=== PATIENT | male | born 1960 | race Caucasian/White ===

== ENCOUNTER 2017-08-31 23:08 | Emergency (ER) | payer OTHER, SELFPAY ==
[2017-08-31 23:13] VITALS: BP 131/72; PULSE 81; RESP 20; TEMP 36.4; O2SAT 96; BMI 28.7
[2017-09-01] MEDS: DEXAMETHASONE 4 MG TABLET 12 MG PO (00:49)
[2017-09-01 01:03] LABS: Add Manual Diff / Slide Review NO; Basophils Percent Auto 1.3 % (0-2); Eosinophils Percent Auto 1.2 % (2-4); Hematocrit 44.6 % (41-53); Hemoglobin 15.7 g/dL (13.5-17.5); Lymphocytes Percent Auto 26.4 % (25-40); Mean Corpuscular HGB Conc 35.1 % (30-36); Mean Corpuscular Hemoglobin 28.9 PG (26-34); Mean Corpuscular Volume 82.5 fL (80-100); Monocytes Percent Auto 11.3 % (3-14); Neutrophils Absolute Auto 6600 /uL (3000-5900); Neutrophils Percent Auto 59.8 % (50-75); Platelet Count 180 X10^3/uL (150-400); Red Blood Cell Count 5.41 X10^6/uL (4.5-5.9); Red Cell Distribution Width 14.2 % (11.6-14.8)
[2017-09-01 01:12] LABS: Calcium 9.6 mg/dL (8.4-10.2); Estimated Glomerular Filt Rate > 60.0 mL/min (>60); Glucose 92 mg/dL (70-100); HEMOLYSIS < 15 (0-50); Potassium 3.8 mmol/L (3.4-5.1); Sodium 142 mmol/L (137-145)
--- NOTE | 2017-09-01 02:10 | ED_ITS ---
HPI - Skin/Abscess/Foreign Bdy General Chief complaint: Skin/Abscess/Foreign Body Stated complaint: swollen lower right lip Time Seen by Provider: 09/01/17 00:19 History of Present Illness HPI narrative: HPI 57-year-old male presents for evaluation of painless recurrent left lower anterior lip swelling. Patient reports he is had approximately one hour of lip swelling that occurred spontaneously. Patient is not eating. Patient get ready to go to bed. Patient reports he had an episode naproxen one month ago that woke him from his sleep. Patient is minor discomfort at that area secondary to distention of the skin. Patient denies itching. Patient denies rash, hives, GI upset, shortness breath, or difficulty breathing. Patient notes he took ibuprofen before onset of today's symptoms, however last time he did not. Patient does note though that he is been taking statins, statin use appears to precede the onset of symptoms. * Medications: Denies GENEVA-inhibitors, ARBs use. * Hx: Denies a family history of angioedema or facial swelling. * Trauma: Patient denies known recent facial trauma. * Allergies: Denies a history of anaphylaxis. M/S/F/SocHx notable for: please see HPI; remainder reviewed with patient and in chart. ROS: Negative constitutional, eye, cardiovascular, pulmonary, GI, , MSK, skin , neurologic, psychiatric, endocrine unless noted in the HPI. Exam Gen: Pleasant, non-toxic appearing, resting comfortably. HEENT: left lower lip with diffuse dampness nontender swelling of normal temperature. Buccal mucosa visually normal without discernible traumatic abnormalities. Oropharynx otherwise visually normal. normocephalic, atraumatic, EOMI, PERRL. Resp: normal work of breathing. Card: extremities warm and well perfused. GI: nondistended. : Deferred MSK: No visible deformities, strength and tone without visually appreciable deficit. Skin: Normal color with no visible lesions. Neuro: AO x 3, no facial asymmetry, vision and hearing WNL. Psych: Mood and affect appropriate. Labs: WBC 1.0, him going 15.7, sodium 142, potassium 3.8, C1 esterase inhibitor pending, C4 pending. MDM Previous chart, nursing note, labs, imaging, and vitals reviewed. A: 57-year-old male presents for evaluation of painless recurrent left lower anterior lip swelling. DDx & Evaluation: given the recurrent nature as well as visual presentation the patient swelling is most strongly suggestive of angioedema. No clear evidence of prior allergen leading to an IGE mediated reaction. Patient is without a clearly identifiable triggering event (ibuprofen was used prior to today's event , however that did not precede his prior episode of lip swelling). Patient takes no antihypertensives, has no family history of hereditary angioedema, no preceding trauma. Furthermore, there is no focal swelling consistent with mucocele or other local minor salivary gland blockage, in the swelling as well away from the patient's sublingual and submandibular glands. To aid in further evaluation with respect to possible acquired angioedema C1 esterase inhibitor level and C4 levels were ordered and the patient will follow up with PCP to review these studies. The patient was given 12 mg dexamethasone and observed for 3 hours without progression of symptoms. Discharge with return to care as needed. Impression: Angioedema. (please reference below for remainder of encounter information) Related Data Home Medications Medication Instructions Recorded Confirmed [TORVASTATIN] #0 07/25/17 Allergies Allergy/AdvReac Type Severity Reaction Status Date / Time spider venom [SPIDER VENOM] Allergy Unknown Verified 08/31/17 23:15 WASP Allergy Unknown Uncoded 07/25/17 03:58 [facility] Social History Smoking Status: Never smoker Exam Initial Vital Signs Initial Vital Signs: Vital Signs Temperature 97.6 F 08/31/17 23:13 Pulse Rate 81 08/31/17 23:13 Respiratory Rate 20 08/31/17 23:13 Blood Pressure 131/72 H 08/31/17 23:13 Pulse Oximetry 96 08/31/17 23:13 Course Orders Ordered: ED Orders 09/01/17 00:56 Basic Metabolic Panel Stat C1 Esterase Inhibitor Stat Complement C4 Stat Complete Blood Count AUTO DIFF Stat Discontinued Medications Dexamethasone (Decadron) 12 mg PO NOW ONE Stop: 09/01/17 00:40 Last Admin: 09/01/17 00:49 Dose: 12 mg Vital Signs - 8 hr 08/31/17 23:13 Temperature 97.6 F Pulse Rate 81 Respiratory Rate 20 Blood Pressure 131/72 H Pulse Oximetry 96 MDM - Skin/Abscess/Foreign Bdy Lab Data Result diagrams: 09/01/17 00:56 09/01/17 00:56 Lab Results 09/01/17 09/01/17 Range/Units 00:56 00:56 WBC 11.0 (4.5-11.0) X10^3/uL RBC 5.41 (4.5-5.9) X10^6/uL Hgb 15.7 (13.5-17.5) g/dL Hct 44.6 (41-53) % MCV 82.5 (80-100) fL MCH 28.9 (26-34) PG MCHC 35.1 (30-36) % RDW 14.2 (11.6-14.8) % Plt Count 180 (150-400) X10^3/uL Neut % (Auto) 59.8 (50-75) % Lymph % (Auto) 26.4 (25-40) % [place] % (Auto) 11.3 (3-14) % Eos % (Auto) 1.2 L (2-4) % Baso % (Auto) 1.3 (0-2) % Neut # (Auto) 6600 H (0735-1737) /uL Sodium 142 (137-145) mmol/L Potassium 3.8 (3.4-5.1) mmol/L Chloride 106.0 (98-107) mmol/L Carbon Dioxide 25.0 (22-32) mmol/L BUN 16.0 (9-20) mg/dL Creatinine 1.00 (0.66-1.25) mg/dL Estimated GFR > 60.0 (>60) mL/min BUN/Creatinine Ratio 16.0 (6-22) Glucose 92 (70-100) mg/dL Calcium 9.6 (8.4-10.2) mg/dL Discharge Plan Departure Prescriptions: No Action [TORVASTATIN] Qty: 0 RF: 0
[2017-09-03 14:50] LABS: C1 Esterase Inhibitor 28 mg/dL (21-39)
== END 2017-09-01 02:32 | disposition home or self-care (01) ==
PROVIDERS: Emergency Provider Emergency Medicine; PCP Family Medicine
DX: T78.3XXA Angioneurotic edema, initial encounter (principal)
CPT/HCPCS: 36415; 80048; 85025; 86160; 99282; 99283

== ENCOUNTER → 2020-04-27 10:08 | Outpatient (CLI) | payer OTHER, SELFPAY ==
[2020-04-27 10:58] LABS: COVID19 -Nasal RAPID Negative (Negative)
== END ==
PROVIDERS: PCP Family Medicine; Visit Provider Surgery
DX: Z01.812 Encounter for preprocedural laboratory examination (principal); Z20.822 Contact with and (suspected) exposure to COVID-19
CPT/HCPCS: 87635; C9803

== ENCOUNTER 2020-04-28 08:53 | Day surgery (SDC) | payer OTHER, SELFPAY ==
[2020-04-27 11:46] VITALS: BP 110/73; PULSE 65; RESP 12; O2SAT 96
[2020-04-27 12:01] VITALS: BP 112/80; PULSE 67; RESP 15; O2SAT 96
[2020-04-28] VITALS (7 sets, daily range): BP systolic 108–129; BP diastolic 69–81; PULSE 64–73; RESP 1–19; TEMP 36.1; O2SAT 95–98; BMI 28.7
--- NOTE | 2020-04-28 | PATH_ITS ---
[facility] Accession Number: [id number] . 01 Material submitted: . PART A: duodenum - DUODENUM PART B: gastrointestinal site - STOMACH PART C: esophagus - DISTAL ESOPHAGUS . 01 Diagnosis: A. Duodenum, Biopsy: Duodenal mucosa with no diagnostic abnormality. Negative for active inflammation, features of sprue, dysplasia, or malignancy. . B. Stomach, Biopsies: Gastric antral mucosa with minimal chronic inflammation and focal intestinal metaplasia. Intestinal metaplasia present in one of three biopsy fragments. Negative for Helicobacter organisms by immunohistochemistry. Negative for dysplasia or malignancy. . C. Distal Esophagus, Biopsies: Squamocolumnar junctional mucosa with mild chronic inflammation. Negative for specialized intestinal metaplasia on AB/PAS stain. Negative for dysplasia or malignancy. MR 05/05/2020 1259 Local . 01 Electronically signed: . Neri Weinstein MD, PhD, Pathologist NPI- [id number] . 01 Gross description: . Part A: DUODENUM: Received in formalin are 2 fragment(s) of puente, soft tissue measuring 0.1 x 0.1 x 0.1 cm to 0.3 x 0.2 x 0.2 cm submitted entirely in 1 cassette(s) Part B: STOMACH: Received in formalin are 3 fragment(s) of puente, soft tissue measuring 0.1 x 0.1 x 0.1 cm to 0.3 x 0.3 x 0.2 cm submitted entirely in 1 cassette(s) Part C: DISTAL ESOPHAGUS: Received in formalin are 2 fragment(s) of puente, soft tissue measuring 0.2 x 0.2 x 0.2 cm to 0.3 x 0.2 x 0.2 cm submitted entirely in 1 cassette(s) /CASEY 05/01/2020 1912 Local . 01 Microscopic: . B. An immunohistochemical stain was performed to evaluate for Helicobacter organisms and is negative. The control stain showed appropriate reactivity. . C. An AB/PAS stain is performed to evaluate for specialized intestinal metaplasia, and is negative for goblet cells. A control stain shows appropriate reactivity. . . . * This test was developed and its performance characteristics determined by [employer]. It has not been cleared or approved by the U.S. Food and Drug Administration. The FDA has determined that such clearance or approval is not necessary. This test is used for clinical purposes. It should not be regarded as investigational or for research. . 01 Pathologist provided ICD-10: K31.9, K20.90 . 01 CPT . 098630, 443774, 291867, L80575, 497824 Performed at: 01 [facility] [address] [place] [address] [address] [facility], [place], [place] [id number] MD Liban Alas MD Phone: [phone]
[2020-04-28] MEDS: SODIUM CHLORIDE 0.9% 1,000 ML 200 ML IV (09:22)
--- NOTE | 2020-04-28 11:10 | PM.PREOP ---
Pre-operative Note COVID-19 COVID-19 status: Negative Result date/Date tested (Pos, Neg/Pending): 04/27/20 Interval Note History & Physical reviewed/Exam performed by Physician: Yes Changes to H&P: No ASA Class (for procedural sedation): II
--- NOTE | 2020-04-28 11:10 | PM.OP.ENDO ---
Operative Date/Time/Diagnoses Date of procedure: 04/28/20 Time of procedure: 11:10 Pre-op diagnosis: Heartburn symptoms Post-op diagnosis: other (Dhillon's esophagus, endoscopic gastritis, endoscopic duodenitis) Procedure & Clinicians Study performed: EGD Procedural sedation performed by the endoscopy Standard forceps biopsies of duodenum, stomach, distal esophagus Same procedure as scheduled: Yes Indications: Heartburn, reflux symptoms Surgeon: Tiffany Solares Procedure Notes SCOAP/Timeout: Performed Procedure in detail: The patient was brought to the room and placed in left lateral decubitus position with all bony prominences padded. A bite block was positioned in the patient's mouth to protect the lips, teeth, and tongue for the procedure. A time-out was performed and then the patient was given procedural sedation starting with 4 mg of Versed and 100 mcg of fentanyl. A total of 6 mg of Versed and 100 micro g of fentanyl were given for the entire procedure. Vitals were monitored throughout the procedure and remained stable. Once adequately sedated, the procedure was begun. The lubricated gastroscope was passed through the bite block and across the tongue and into the esophagus without incident. A tubular view of the esophagus was maintained as the scope was advanced through the esophagus and into the stomach. The scope was advanced through the stomach and to the pylorus. The scope was gently popped through the pylorus and into the duodenal bulb. The scope was flexed and advanced into the second and third portions of the duodenum. The duodenum and duodenal bulb revealed some evidence of mild inflammation. The scope was withdrawn into the stomach. The stomach revealed some evidence of mild inflammation. The scope was retroflexed and the gastric cardia was examined. The hiatus appeared normal, with no gaping of the GE junction around the scope. The scope was then straightened, and withdrawn into the esophagus. There was a broken Z-line at 40 cm with a 2 cm tongue of salmon-colored mucosa coming up into the distal esophagus. The remainder of the esophagus appeared normal. Incidental note of a gastric inlet patch in the upper esophagus. Biopsies were taken of the duodenum, stomach, distal esophagus. The scope was then withdrawn through the esophagus with a tubular view. The scope was then withdrawn from the patient the procedure was concluded. The patient tolerated the procedure well and was transferred to the PACU in stable condition. Sedation minutes: 11 Findings: Dhillon's esophagus (2 cm tongue of salmon-colored mucosa coming up into the esophagus, consistent with short segment Dhillon's esophagus) and gastritis (Endoscopic gastritis and duodenitis, without any exposed vessels or significant ulcers) Specimen(s): other (biopsy of stomach, duodenum, and distal esophagus) Complications: none Impression: Endoscopy findings consistent with short-segment Dhillon's esophagus, low-grade gastritis, and duodenitis Post-procedure Recommendations: Other recommendation (Recommendations for future endoscopic surveillance, and workup for anti-reflux surgery will depend on biopsy results, we will contact the patient when the pathology results return) Follow up: as needed Disposition: PACU
[2020-04-28] MEDS: LIDOCAINE 4% SOLN 50 ML 20 ML TOP (11:14)
[2020-04-28] MEDS: MIDAZOLAM 5 MG/5 ML VIAL IV (11:17)
[2020-04-28] MEDS: fentaNYL 250 MCG/5 ML INJ IV (11:17)
--- NOTE | 2020-04-28 12:00 | SUR.PHASEI ---
Report from Mariah IVEY
== END 2020-04-28 12:24 | disposition home or self-care (01) ==
PROVIDERS: PCP Family Medicine; Referring Provider Surgery; Visit Provider Surgery
PROC: 0DJ08ZZ Inspection of Upper Intestinal Tract, Via Natural or Artificial Opening Endoscopic (ICD-10-PCS; CPT 43235; principal; 2020-04-28 10:00)
DX: K20.90 Esophagitis, unspecified without bleeding (principal); K29.80 Duodenitis without bleeding; K29.50 Unspecified chronic gastritis without bleeding
CPT/HCPCS: 43239; 99152; J2250; J3010

== ENCOUNTER → 2020-08-23 11:52 | Outpatient (CLI) | payer OTHER, SELFPAY | PROVIDERS: PCP Family Medicine; Visit Provider Physician Assistant | DX: T14.8XXA Other injury of unspecified body region, initial encounter (principal) | CPT/HCPCS: 87070; 87077; 87147; 87186; 87205 ==

== ENCOUNTER → 2021-03-15 07:07 | Outpatient (CLI) | payer OTHER, SELFPAY ==
[2021-03-15 08:23] LABS: Hemoglobin A1C% w Est Avg Glu 5.2 % (4.0-6.0)
[2021-03-15 08:29] LABS: Cholesterol 134 mg/dL (140-199); HDL Cholesterol 34 mg/dL (40-60); LDL Cholesterol Calculated 76 mg/dL (<100); Triglycerides 121 mg/dL (35-150)
[2021-03-15 08:58] LABS: Prostate Specific Antigen 0.601 ng/mL (0.10-4.00)
== END ==
PROVIDERS: PCP Family Medicine; Referring Provider Family Medicine; Visit Provider Family Medicine
DX: Z13.1 Encounter for screening for diabetes mellitus (principal); E78.00 Pure hypercholesterolemia, unspecified; Z12.5 Encounter for screening for malignant neoplasm of prostate
CPT/HCPCS: 36415; 80061; 83036; 84153

== ENCOUNTER → 2021-05-28 09:37 | Outpatient (CLI) | payer OTHER, SELFPAY ==
[2021-05-28 10:39] LABS: COVID19 -Nasal RAPID Negative (Negative)
== END ==
PROVIDERS: PCP Family Medicine; Visit Provider Surgery
DX: Z01.812 Encounter for preprocedural laboratory examination (principal); Z20.822 Contact with and (suspected) exposure to COVID-19
CPT/HCPCS: 87635; C9803

== ENCOUNTER 2021-05-29 08:07 | Day surgery (SDC) | payer OTHER, SELFPAY ==
--- NOTE | 2021-05-29 | PATH_ITS ---
[facility] Accession Number: [id number] . 01 Material submitted: . PART A: esophagus, E-G Junction - BIOPSY GE JUNCTION PART B: gastrointestinal site - GASTRIC BIOPSY . 02 Diagnosis: A. Biopsy Gastroesophageal Junction: Squamocolumnar junctional mucosa with no diagnostic abnormality. Negative for intestinal metaplasia. Negative for dysplasia and malignancy. . B. Gastric Biopsy: Portion of gastric body-type mucosa with mild chronic inflammation. Negative for Helicobacter organisms by immunohistochemistry. Negative for intestinal metaplasia. Negative for dysplasia or malignancy. MRV 06/01/2021 1436 Local . 02 Electronically signed: . Crystal Bo MD, Pathologist NPI- [id number] . 01 Gross description: . Part A: BIOPSY GE JUNCTION: Received in formalin is 1 fragment(s) of puente, soft tissue measuring 0.3 x 0.1 x 0.1 cm submitted entirely in 1 cassette(s) Part B: GASTRIC BIOPSY: Received in formalin is 1 fragment(s) of puente, soft tissue measuring 0.4 x 0.1 x 0.1 cm submitted entirely in 1 cassette(s) /CPE 05/30/2021 1313 Local . 02 Microscopic: . B. An immunohistochemical stain was performed to evaluate for Helicobacter organisms and is negative. The control stain showed appropriate reactivity. . * This test was developed and its performance characteristics determined by [employer] It has not been cleared or approved by the U.S. Food and Drug Administration. The FDA has determined that such clearance or approval is not necessary. This test is used for clinical purposes. It should not be regarded as investigational or for research. . 02 Pathologist provided ICD-10: K29.70 . 02 CPT . 253565, 791724, D71889 Specimen Comment: A courtesy copy of this report has been sent to [phone] Performed at: 01 [facility] [address] [place] [address], [place], [place] [id number] MD Liban Alas MD Phone: [phone] Performed at: 02 [facility] [address] [place], [place] [id number] MD Yadira Mays MD Phone: [phone]
[2021-05-29 08:25] VITALS: BMI 27.6
[2021-05-29 08:33] VITALS: BP 116/75; PULSE 60; RESP 16; TEMP 36.6; O2SAT 97
[2021-05-29] MEDS: LACTATED RINGERS 1,000 ML 200 ML IV (08:39)
--- NOTE | 2021-05-29 09:08 | PM.HP.1 ---
History of Present Illness History of Present Illness Date Patient Seen: 05/29/21 Time Patient Seen: 09:08 Chief complaint: EGD Narrative: 61-year-old man history of chronic reflux here for EGD. He had previous esophagoduodenoscopy 1 year ago the demonstrated mild inflammation of the esophagus and stomach there was no evidence of Dhillon's esophagus. He is continued on 20 mg of omeprazole daily with relatively good control of his symptoms. He is here for interval surveillance. No nausea hematemesis unintentional weight loss dysphagia. Patient History Medical History (Updated 03/07/21 @ 14:02 by Gustavo Vitale MD) Closed displaced fracture of pelvis (~03/20/16) Closed displaced fracture of surgical neck of right humerus (~03/30/16) Closed minimally displaced zone I fracture of sacrum with routine healing Cough Encounter for general adult medical examination with abnormal findings Hemorrhoid Herpes zoster without complication History of fracture of humerus Hyperlipidemia Screening for diabetes mellitus Screening for HIV (human immunodeficiency virus) Screening for prostate cancer Surgical History (Updated 03/04/21 @ 19:18 by Margie Matias) Anesthesia History of arthroscopic knee surgery (~04/2019) History of arthroscopic knee surgery (~05/1994) History of colonoscopy History of endoscopy (~04/2020) Hx of right knee surgery (~02/2017) Family & Social History Family History (Updated 03/04/21 @ 19:21 by Margie Matias) Father Hypertension Heart disease Prostate cancer Hyperlipidemia Mother Hypertension Grandfather Diabetes mellitus Grandmother Dementia Grandfather Heat stroke Grandmother Congestive heart failure Social History: household members spouse Tobacco & Substance use: Smoking Status Never smoker alcohol intake current alcohol intake frequency a few times a month Substance Use Type does not use Meds Home Medications and Allergies Home Medications Medication Instructions Recorded Confirmed Type multivitamin 1 cap PO DAILY 10/26/18 05/29/21 History salmon oil-omega-3 fatty acids 1 cap PO DAILY cap 10/26/18 05/29/21 History 1,000 mg-200 mg capsule ([place] Oil-1000) cholecalciferol (vitamin D3) 50 50 mcg PO DAILY 04/20/20 05/29/21 History mcg (2,000 unit) capsule coenzyme Q10 30 mg capsule (CoQ-10) 30 mg PO DAILY 02/06/21 05/29/21 History epinephrine 0.3 mg/0.3 mL 0.3 mg (0.3 mL) IM ONCE #1 ea 02/06/21 05/29/21 Rx injection, auto-injector (Auvi-Q) omeprazole 40 mg capsule,delayed 40 mg PO DAILY #90 cap 02/06/21 05/29/21 Rx release valacyclovir 1 gram tablet 1,000 mg PO TID 02/06/21 02/06/21 History simvastatin 20 mg tablet See Rx Instructions .ROUTE 05/07/21 05/29/21 Rx .COMPLEX #90 tab Allergies Allergy/AdvReac Type Severity Reaction Status Date / Time spider venom [SPIDER VENOM] Allergy Unknown Verified 05/29/21 08:19 WASP Allergy Unknown Uncoded 02/06/21 15:42 Exam Vital Signs (past 8 hours): - 05/29/21 08:33 Temperature 97.8 F Pulse Rate 60 Respiratory Rate 16 Blood Pressure 116/75 Pulse Oximetry 97 Oxygen Delivery Method Room Air Narrative Exam Narrative: GENERAL: Adult male in no apparent distress HEENT: No scleral icterus CV: Regular rate, no peripheral edema LUNGS: No increased work of breathing. Patient speaks in full sentences without oxygen support. ABDOMEN: Soft, non-tender, non-distended NEURO: Nonfocal, normal strength throughout, Assessment & Plan Assessment and plan (1) Gastroesophageal reflux disease with esophagitis without hemorrhage: Status: Acute Assessment & Plan narrative: 61-year-old man with gastroesophageal reflux history of esophagitis and gastritis here for surveillance EGD. Technical details of the procedure were discussed with patient. Procedural risks including bleeding, missed diagnosis, intestinal perforation were discussed. His questions been answered he is in agreement with this plan. Time Spent With Patient Critical Care time: I spent a total of [] minutes of critical care time on this patient's care today; this time is exclusive of procedural time.
--- NOTE | 2021-05-29 09:26 | PM.OP.EGD ---
Operative Date/Time/Diagnoses Date of procedure: 05/29/21 Time of procedure: 09:26 Pre-op diagnosis: Gastritis, esophagitis Post-op diagnosis: same Procedure & Clinicians Study performed: Esophagoduodenoscopy Same procedure as scheduled: Yes Indications: History of gastritis and esophagitis Surgeon: Taj Blackmon Procedure Notes Procedure in detail: Patient placed in left lateral decubitus position. Time out was performed. Procedural sedation was administered with Versed and Fentanyl. A bite block was placed. the scope was inserted into the mouth and advanced through the esophagus and into the stomach. The pylorus was intubated and the duodenum was normal to the 2nd portion. There was no significant hiatal hernia. The stomach was notable for mild nonbleeding gastritis of the body and cardia. Biopsy was taken with forceps. The scope was withdrawn into the esophagus the Z line was seen at 40 cm from the incisions. There was mild inflammation of the distal esophagus at the GE junction biopsies of the junction were taken with forceps. Stomach was desufflated and scope removed. Patient tolerated procedure well. Findings: gastritis and other findings (Esophagitis) Specimen(s): other (Gastric, GE junction) Complications: none Impression: Mild gastritis and esophagitis Post-procedure Plan for aftercare: Continue omeprazole 20 mg daily. Will follow up with biopsy results. Disposition: same day surgery
[2021-05-29] MEDS: LIDOCAINE 4% SOLN 50 ML 20 ML TOP (09:28)
[2021-05-29] MEDS: fentaNYL 250 MCG/5 ML INJ IV (09:29)
[2021-05-29] MEDS: MIDAZOLAM 5 MG/5 ML VIAL IV (09:29)
[2021-05-29 09:30] VITALS: BP 110/75; PULSE 63; RESP 11; TEMP 36.2; O2SAT 97
[2021-05-29 09:35] VITALS: BP 121/72; PULSE 56; RESP 13; O2SAT 95
[2021-05-29 09:40] VITALS: BP 110/78; PULSE 61; RESP 16; O2SAT 95
[2021-05-29 09:48] VITALS: BP 113/68; PULSE 70; RESP 13; TEMP 36.1; O2SAT 96
== END 2021-05-29 09:59 | disposition home or self-care (01) ==
PROVIDERS: PCP Family Medicine; Referring Provider Surgery; Visit Provider Surgery
PROC: 0DJ08ZZ Inspection of Upper Intestinal Tract, Via Natural or Artificial Opening Endoscopic (ICD-10-PCS; CPT 43235; principal; 2021-05-29 09:15)
DX: K29.50 Unspecified chronic gastritis without bleeding (principal); K21.00 Gastro-esophageal reflux disease with esophagitis, without bleeding
CPT/HCPCS: 43239; 36415; J2250; J3010

== ENCOUNTER → 2021-11-23 13:53 | Outpatient (CLI) | payer OTHER, SELFPAY ==
--- NOTE | 2021-11-23 15:25 | DI.US.S_ITS ---
PROCEDURE: US SCROTUM INDICATIONS: left testicular mass TECHNIQUE: Real-time scanning was performed of the scrotum and testicles, with image documentation. Color and pulse Doppler interrogation was performed of both testicles. COMPARISON: None. FINDINGS: Right: Testicle is normal in size at 4.5 x 2.3 x 3.0 cm, and homogenous in echotexture. There is unilocular cyst in the epididymal head measuring 1.2 x 1.3 x 1.2 cm. This corresponds to the area of palpable abnormality. Color Doppler demonstrates normal vascularity to the epididymal head and epididymal body. There is a small simple hydrocele present. No varicocele. Overlying scrotal skin is normal in thickness. Left: Testicle is normal in size at 3.9 x 2.5 x 2.7 cm, and homogeneous in echotexture. There is a tiny cyst cluster in the epididymal head. Vascularity is normal. Small simple hydrocele. No varicoceles. Overlying scrotal skin is normal in thickness. Doppler: Color and pulse Doppler demonstrate normal and symmetric arterial flow in both testicles. IMPRESSION: 1. Palpable right scrotal mass corresponds to a unilocular right epididymal head cyst. 2. Small bilateral simple hydroceles. 3. No testicular abnormality. Dictated by: Jannet Abraham M.D. on 11/23/2021 at 18:11 Approved by: Jannet Abraham M.D. on 11/23/2021 at 18:14
== END ==
PROVIDERS: PCP Family Medicine; Referring Provider Surgery; Visit Provider Surgery
DX: N50.89 Other specified disorders of the male genital organs (principal); N50.3 Cyst of epididymis; N43.3 Hydrocele, unspecified
CPT/HCPCS: 76870

== ENCOUNTER → 2022-03-05 15:31 | Outpatient (CLI) | payer OTHER, SELFPAY ==
[2022-03-05 16:16] LABS: COVID19 -Nasal RAPID Negative (Negative)
== END ==
PROVIDERS: PCP Family Medicine; Visit Provider Surgery
DX: Z20.822 Contact with and (suspected) exposure to COVID-19 (principal); Z01.812 Encounter for preprocedural laboratory examination
CPT/HCPCS: 87635

== ENCOUNTER 2022-03-06 11:34 | Day surgery (SDC) | payer OTHER, SELFPAY ==
[2022-03-06] VITALS (9 sets, daily range): BP systolic 109–126; BP diastolic 63–75; PULSE 75–84; RESP 12–16; TEMP 36.4–36.9; O2SAT 92–98; BMI 27.9
[2022-03-06] MEDS: LACTATED RINGERS 1,000 ML 100 ML IV (12:16)
--- NOTE | 2022-03-06 13:21 | P.HP_ITS ---
History of Present Illness History of Present Illness Date Patient Seen: 03/06/22 Time Patient Seen: 13:21 Chief complaint: Lap BI IHR Narrative: 62M here for elective laparoscopic bilateral inguinal hernia repair. Please refer to H&P from November 2021 for further detail. No interval change in health. Patient History Medical History Acid reflux Closed displaced fracture of pelvis (~03/20/16) Closed displaced fracture of surgical neck of right humerus (~03/30/16) Closed minimally displaced zone I fracture of sacrum with routine healing Cough Encounter for general adult medical examination with abnormal findings Heartburn symptom Hemorrhoid Herpes zoster without complication History of fracture of humerus Hyperlipidemia Myalgia Non-recurrent bilateral inguinal hernia without obstruction or gangrene Right arm pain Screening for diabetes mellitus Screening for HIV (human immunodeficiency virus) Screening for prostate cancer Surgical History Anesthesia History of arthroscopic knee surgery (~04/2019) History of arthroscopic knee surgery (~05/1994) History of colonoscopy History of endoscopy (~04/2020) Hx of right knee surgery (~02/2017) Family & Social History Family History Father Hypertension Heart disease Prostate cancer Hyperlipidemia Mother Hypertension Grandfather Diabetes mellitus Grandmother Dementia Grandfather Heat stroke Grandmother Congestive heart failure Social History: household members spouse Tobacco & Substance use: Smoking Status Never smoker alcohol intake current alcohol intake frequency a few times a month Substance Use Type does not use Meds Home Medications and Allergies Home Medications Medication Instructions Recorded Confirmed Type multivitamin 1 cap PO DAILY 10/26/18 03/06/22 History salmon oil-omega-3 fatty acids 1 cap PO DAILY 10/26/18 03/06/22 History 1,000 mg-200 mg capsule ([place] Oil-) cholecalciferol (vitamin D3) 50 50 mcg PO DAILY 04/20/20 03/06/22 History mcg (2,000 unit) capsule coenzyme Q10 30 mg capsule (CoQ-10) 30 mg PO DAILY 02/06/21 03/06/22 History epinephrine 0.3 mg/0.3 mL 0.3 mg (0.3 mL) IM ONCE #1 ea 02/06/21 03/06/22 Rx injection, auto-injector (Auvi-Q) simvastatin 20 mg tablet See Rx Instructions .Route 06/15/21 03/06/22 Rx .COMPLEX #90 tabs omeprazole 40 mg capsule,delayed See Rx Instructions .Route 12/24/21 03/06/22 Rx release .COMPLEX #90 caps acetaminophen 325 mg capsule 650 mg PO QID PRN pain #60 caps 03/06/22 Rx (Tylenol) docusate sodium 100 mg capsule 100 mg PO BID #30 caps 03/06/22 Rx (Colace) ibuprofen 200 mg tablet 400 mg PO Q6H #60 tabs 03/06/22 Rx oxycodone 5 mg tablet 5 mg PO Q6H PRN pain #20 tabs 03/06/22 Rx Allergies Allergy/AdvReac Type Severity Reaction Status Date / Time spider venom [SPIDER VENOM] Allergy Unknown Verified 03/06/22 12:12 WASP Allergy Unknown Uncoded 03/06/22 12:12 Exam Vital Signs (past 8 hours): - 03/06/22 11:53 Temperature 97.6 F Pulse Rate 76 Respiratory Rate 16 Blood Pressure 122/74 Pulse Oximetry 98 Oxygen Delivery Method Room Air Oxygen Delivery Method Room Air Narrative Exam Narrative: Gen-Adult man alert and oriented Abdomen bilateral reducible inguinal hernia Assessment & Plan Assessment and plan (1) Bilateral inguinal hernia: Qualifiers: Obstruction and gangrene presence: without obstruction or gangrene Recurrence: non-recurrent Qualified Code(s): K40.20 - Bilateral inguinal hernia, without obstruction or gangrene, not specified as recurrent Status: Acute Assessment & Plan narrative: 62M here for laparoscopic bilateral inguinal hernia repair. Operative details reviewed. Operative risks including bleeding, infection, reoccurrence, chronic pain and damage to surrounding structures discussed. He provides his verbal and written consent. Time Spent With Patient Critical Care time: I spent a total of [] minutes of critical care time on this patient's care today; this time is exclusive of procedural time.
[2022-03-06] MEDS: CEFAZOLIN 2 GM/100 ML PREMIX 100 ML IV (13:35)
--- NOTE | 2022-03-06 14:06 | SUR.OPER ---
Supine on padded OR bed, head on pillow, arms tucked with gel padding bilaterally, legs uncrossed, safety belt at thigh, gel pad to heels.
[2022-03-06] MEDS: BUPIVACAINE 0.25% (PF) VIAL 30 ML INJ (14:21)
--- NOTE | 2022-03-06 15:54 | P.OP_ITS ---
Operative Date/Time/Diagnoses Date of procedure: 03/06/22 Time of procedure: 15:54 Pre-op diagnosis: Bilateral inguinal hernia Post-op diagnosis: same Procedure & Clinicians Procedure: Laparoscopic bilateral inguinal hernia repair with mesh (PILAR) Same procedure as scheduled: Yes Indications: Reducible bilateral inguinal hernia Surgeon: Taj Blackmon Anesthesia Type: General Operative Notes Findings: Bilateral direct floor defect. Small cord lipoma bilateral Specimen(s): none sent Estimated Blood Loss (mL): 50 Procedure in detail: The patient was brought to the operating room and placed supine on the table. Bilateral sequential compression devices were applied. General anesthesia was induced and they were intubated with an endotracheal tube. A sarabia cath was placed in sterile fashion. They received 900g clindaymycin prior to skin incision. They were prepped and draped in sterile fashion. A time out was perfo rmed to ensure the correct patient, procedure and necessary equipment within the operating room. The skin was infiltrated with 0.25% bupivicaine. A 1 cm supra umbilical midline incision was made. The fascia was sharply incised and the abdomen entered traumatically. A 10mm balloon port was placed and pneumoperitoneum was established at 15mm Hg. Inspection of the abdomen demonstrated no evidence of injury upon entry. Two 5 mm ports were then placed under direct visualization in the right and left lower quadrant lateral to the rectus muscle. Right and left direct hernias were observed. Starting on the left side the peritoneum 4 cm superior to the deep inguinal ring between the medial umbilical ligament and the anterior superior iliac spine was incised. The medial preperitoneal dissection was carried out into the space of Retzius bluntly, the bladder was swept inferiorly, the pubis and Amado's ligament were identified. Next attention was turned towards the lateral aspect of the peritoneal flap. The preperitoneal fat with the testicular vessels was carefully dissected off the inferior peritoneal flap. The cord was carefully inspected there was a cord lipoma which was skeltonized off the cord preserving the testicular vessels and the vas deferns. The attachements to the direct hernia sac were divided and the direct defect was reduced. A large Bard 3D Max mesh was then placed into the abdomen and positioned such that the myopectineal orifice was completely covered with good overlap on all sides. The peritoneal flap was then repositioned back to its original position and a running V lock suture was used to close the peritoneum such that no bowel could herniate into the preperitoneal space. The area was examined for hemostasis. Next the right side was addressed. The peritoneum 4 cm superior to the deep inguinal ring between the medial umbilical ligament and the anterior superior iliac spine was incised. The medial preperitoneal dissection was carried out into the space of Retzius bluntly, the bladder was swept inferiorly, the pubis and Amado's ligament were identified. Next attention was turned towards the lateral aspect of the peritoneal flap. The preperitoneal fat with the testicular vessels was carefully dissected off the inferior peritoneal flap. The cord was carefully inspected there was no evidence of indirect defect. there was a small cord lipoma which was carefully disected off the cord. The attachements to the direct hernia sac were divided and the direct defect was reduced. A large Bard 3D Max mesh was then placed into the abdomen and positioned such that the myopectineal orifice was completely covered with good overlap on all sides. The peritoneal flap was then repositioned back to its original position and a running V lock suture was used to close the peritoneum such that no bowel could herniate into the preperitoneal space. The area was examined for hemostasis. The 5mm trocars were removed under direct visualization and pneumoperitoneum was deflated through the umbilical trocar, The fascia at the umbilicus was closed with 0-Vicryl in figure of 8 fashion, skin closed with 4-0 Monocyl followed by Dermabond. The sponge and instrument count at the end of the case was correct. Both testicles were entirely within the scrotum at the end of the case. The patient emerged from anesthsia was extubated and transferred to recovery in stable condition. Complications: none Post-operative Condition: stable Disposition: same day surgery
[2022-03-06] MEDS: OXYCODONE/ACETAMINOPHEN 5/325 TABLET 1 TAB PO ×2 (16:08→16:38)
--- NOTE | 2022-03-06 17:04 | SUR.PHASEII ---
Patient tolerated fluids and snacks. ambulated to bathroom and voided without difficulty. discharged by wheelchair to private vehicle in stable condition. see flowsheet for assessment details.
== END 2022-03-06 16:55 | disposition home or self-care (01) ==
PROVIDERS: PCP Family Medicine; Referring Provider Surgery; Visit Provider Surgery
PROC: 0YQ64ZZ Repair Left Inguinal Region, Percutaneous Endoscopic Approach (ICD-10-PCS; CPT 49650; principal; 2022-03-06 14:15)
DX: K40.20 Bilateral inguinal hernia, without obstruction or gangrene, not specified as recurrent (principal); D17.6 Benign lipomatous neoplasm of spermatic cord
CPT/HCPCS: 49650; J0690; J1100; J1885; J2250; J2405; J2704; J3010

== ENCOUNTER 2022-05-14 12:34 | Day surgery (SDC) | payer OTHER, SELFPAY ==
--- NOTE | 2022-05-14 | PATH_ITS ---
[facility] Accession Number: [id number] No. of containers..01 Tissue . 01 Material submitted: . esophagus, E-G Junction - GE JUNCTION . 01 Diagnosis: Gastroesophageal Junction, Biopsy: Squamocolumnar junctional mucosa with no diagnostic abnormality. Negative for intestinal metaplasia. Negative for dysplasia and malignancy. . MRV 05/20/2022 1348 Local . 01 Electronically signed: . Yadira Mays MD, Pathologist NPI- [id number] . 01 Gross description: . GE JUNCTION: Received in formalin are 4 fragment(s) of puente, soft tissue measuring 0.3 x 0.1 x 0.1 cm to 0.4 x 0.1 x 0.1 cm submitted entirely in 1 cassette(s) /CPE 05/15/2022 0854 Local . 01 Pathologist provided ICD-10: K20.90 . 01 CPT . 361645 Specimen Comment: A courtesy copy of this report has been sent to [phone] Performed at: 01 [facility] [address] [place] [address], [place], [place] [id number] MD Liban Alas MD Phone: [phone]
[2022-05-14 13:09] VITALS: BMI 27.9
[2022-05-14 13:13] VITALS: BP 127/75; PULSE 71; RESP 16; TEMP 36.5; O2SAT 97
[2022-05-14] MEDS: LACTATED RINGERS 1,000 ML 200 ML IV (13:18)
--- NOTE | 2022-05-14 14:22 | PM.HP.1 ---
History of Present Illness History of Present Illness Date Patient Seen: 05/14/22 Time Patient Seen: 14:22 Chief complaint: EGD Narrative: 62-year-old man with a history of gastroesophageal reflux here for screening upper endoscopy. Dyspepsia without dysphagia, nausea or unintentional weight loss,. He is not on anti-reflux medication chronically. Patient History Medical History Acid reflux Closed displaced fracture of pelvis (~03/20/16) Closed displaced fracture of surgical neck of right humerus (~03/30/16) Closed minimally displaced zone I fracture of sacrum with routine healing Cough Encounter for general adult medical examination with abnormal findings Heartburn symptom Hemorrhoid Herpes zoster without complication History of fracture of humerus Hyperlipidemia Myalgia Non-recurrent bilateral inguinal hernia without obstruction or gangrene Right arm pain Screening for diabetes mellitus Screening for HIV (human immunodeficiency virus) Screening for prostate cancer Surgical History Anesthesia History of arthroscopic knee surgery (~04/2019) History of arthroscopic knee surgery (~05/1994) History of colonoscopy History of endoscopy (~04/2020) Hx of right knee surgery (~02/2017) Family & Social History Family History Father Hypertension Heart disease Prostate cancer Hyperlipidemia Mother Hypertension Grandfather Diabetes mellitus Grandmother Dementia Grandfather Heat stroke Grandmother Congestive heart failure Social History: household members spouse Tobacco & Substance use: Smoking Status Never smoker alcohol intake current alcohol intake frequency a few times a month Substance Use Type does not use Meds Home Medications and Allergies Home Medications Medication Instructions Recorded Confirmed Type simvastatin 20 mg tablet See Rx Instructions .Route 06/15/21 05/14/22 Rx .COMPLEX #90 tabs Allergies Allergy/AdvReac Type Severity Reaction Status Date / Time spider venom [SPIDER VENOM] Allergy Unknown Verified 03/21/22 11:42 WASP Allergy Unknown Uncoded 03/21/22 11:42 Exam Vital Signs (past 8 hours): - 05/14/22 13:13 Temperature 97.7 F Pulse Rate 71 Respiratory Rate 16 Blood Pressure 127/75 Pulse Oximetry 97 Oxygen Delivery Method Room Air Oxygen Delivery Method Room Air Narrative Exam Narrative: General adult male alert oriented no acute distress Abdomen soft nontender nondistended Assessment & Plan Assessment and plan (1) Gastroesophageal reflux disease with esophagitis without hemorrhage: Status: Acute Assessment & Plan narrative: 62-year-old man with chronic gastroesophageal reflux disease here for routine, screening esophagoduodenoscopy. Overview of the procedure was discussed with the patient. Procedural risks including bleeding, intestinal injury, missed diagnosis were discussed. Questions have been answered he is in agreement with this plan. Time Spent With Patient Critical Care time: I spent a total of [] minutes of critical care time on this patient's care today; this time is exclusive of procedural time.
[2022-05-14 14:40] VITALS: BP 113/79; PULSE 77; RESP 18; TEMP 36.4; O2SAT 94
--- NOTE | 2022-05-14 14:40 | PM.OP.EGD ---
Operative Date/Time/Diagnoses Date of procedure: 05/14/22 Time of procedure: 14:40 Pre-op diagnosis: Gastroesophageal reflux Post-op diagnosis: same Procedure & Clinicians Study performed: Esophagoduodenoscopy Same procedure as scheduled: Yes Indications: Gastroesophageal reflux Surgeon: Taj Blackmon Procedure Notes Procedure in detail: Patient placed in left lateral decubitus position. Time out was performed. Procedural sedation was administered by anesthesia. A bite block was placed. the scope was inserted into the mouth and advanced through the esophagus and into the stomach. The pylorus was intubated and the duodenum was normal to the 2nd portion. The scope was retroflexed within the stomach and there was no hiatal hernia. No ulcers, or gastritis. The scope was withdrawn into the esophagus the Z line was seen at 38 cm from the incisions. There was mild distal esophagitis but no christina Dhillon's, esophageal masses or strictures. Biopsy of the GE junction was performed with forceps. Stomach was desufflated and scope removed. Patient tolerated procedure well. Specimen(s): other (GE junction) Impression: Esophagitis Post-procedure Recommendations: Reflux diet Plan for aftercare: As needed [id number] Pepcid Disposition: same day surgery
[2022-05-14 14:44] VITALS: BP 113/79; PULSE 72; RESP 18; O2SAT 95
[2022-05-14 14:50] VITALS: BP 104/73; PULSE 80; RESP 15; O2SAT 96
[2022-05-14 14:55] VITALS: BP 105/71; PULSE 67; RESP 15; TEMP 36.4; O2SAT 97
--- NOTE | 2022-05-14 15:19 | SUR.PHASEII ---
1520: Pt A&Ox4, denies any distress, abd soft, and ready to discharge home. Discharge instructions reviewed with time for questions. IV DC'd intact. Awaiting ride to arrive. Taking PO without any difficulties.
== END 2022-05-14 15:31 | disposition home or self-care (01) ==
PROVIDERS: PCP Family Medicine; Referring Provider Surgery; Visit Provider Surgery
PROC: 0DJ08ZZ Inspection of Upper Intestinal Tract, Via Natural or Artificial Opening Endoscopic (ICD-10-PCS; CPT 43235; principal; 2022-05-14 14:00)
DX: K21.9 Gastro-esophageal reflux disease without esophagitis (principal)
CPT/HCPCS: 43239; J2704

== ENCOUNTER → 2022-11-06 07:26 | Outpatient (CLI) | payer OTHER, SELFPAY ==
[2022-11-06 08:49] LABS: Hematocrit 45.2 % (41-53); Hemoglobin 15.7 g/dL (13.5-17.5); Mean Corpuscular HGB Conc 34.7 % (30-36); Mean Corpuscular Hemoglobin 29.1 PG (26-34); Mean Corpuscular Volume 83.9 fL (80-100); Platelet Count 207 X10^3/uL (150-400); Red Blood Cell Count 5.38 X10^6/uL (4.5-5.9); Red Cell Distribution Width 13.9 % (11.6-14.8); White Blood Cell Count 7.6 X10^3/uL (4.5-11.0)
[2022-11-06 09:59] LABS: Alanine Aminotransferase 29 IU/L (<50); Albumin 4.1 g/dL (3.5-5.0); Albumin Globulin Ratio 1.6 (1.0-2.8); Alkaline Phosphatase 81 U/L (38-126); Aspartate Aminotransferase 28 IU/L (17-59); Bilirubin Total 0.7 mg/dL (0.2-1.3); Blood Urea Nitrogen 14 mg/dL (9-20); Calcium 9.1 mg/dL (8.4-10.2); Carbon Dioxide 28 mmol/L (22-32); Chloride 104 mmol/L (98-107); Cholesterol 232 mg/dL (140-199); Estimated Glomerular Filt Rate > 60 mL/min (>60); Globulin 2.6 g/dL (1.7-4.1); Glucose 96 mg/dL (80-110); HDL Cholesterol 45 mg/dL (40-60); HEMOLYSIS < 15 (0-50); LDL Cholesterol Calculated 150 mg/dL (<100); Potassium 4.2 mmol/L (3.4-5.1); Sodium 138 mmol/L (137-145); Total Protein 6.7 g/dL (6.3-8.2); Triglycerides 184 mg/dL (35-150)
[2022-11-06 10:24] LABS: Prostate Specific Antigen Scrn 0.802 ng/mL (0.1-4.0)
== END ==
PROVIDERS: PCP Family Medicine; Referring Provider Family Medicine; Visit Provider Family Medicine
DX: E78.5 Hyperlipidemia, unspecified (principal); N40.0 Benign prostatic hyperplasia without lower urinary tract symptoms; Z12.5 Encounter for screening for malignant neoplasm of prostate; Z13.1 Encounter for screening for diabetes mellitus
CPT/HCPCS: 36415; 80053; 80061; 85027; G0103

== ENCOUNTER → 2023-03-14 10:26 | Outpatient (CLI) | payer OTHER, SELFPAY ==
--- NOTE | 2023-03-14 10:28 | DI.RAD.S_ITS ---
PROCEDURE: XR SACRUM COCCYX MIN 2V INDICATIONS: worsening tailbone pain, remote trauma TECHNIQUE: 3 views of the sacrum and coccyx acquired. COMPARISON: [facility], CR, XR PELVIS 1 OR 2VW, 10/28/2015, 14:36. FINDINGS: Bones: No fractures or dislocations. No suspicious bony lesions. Soft tissues: Visualized bowel gas pattern is normal. No suspicious soft tissue densities. IMPRESSION: No acute osseous abnormality. If clinical symptoms persist or clinical suspicion for pathology is high, a repeat examination in 7-10 days, or advanced imaging such as CT or MRI is suggested for further evaluation. Dictated by: David Hannah M.D. on 03/14/2023 at 17:27 Approved by: David Hannah M.D. on 03/14/2023 at 17:31
== END ==
PROVIDERS: PCP Family Medicine; Referring Provider Family Medicine; Visit Provider Family Medicine
DX: M53.3 Sacrococcygeal disorders, not elsewhere classified (principal)
CPT/HCPCS: 72220

== ENCOUNTER → 2023-07-03 08:07 | Outpatient (CLI) | payer OTHER, SELFPAY ==
[2023-07-03 09:44] LABS: Cholesterol 191 mg/dL (140-199); HDL Cholesterol 45 mg/dL (40-60); LDL Cholesterol Calculated 119 mg/dL (<100); Triglycerides 133 mg/dL (35-150)
== END ==
PROVIDERS: PCP Family Medicine; Referring Provider Physician Assistant; Visit Provider Physician Assistant
DX: E78.5 Hyperlipidemia, unspecified (principal)
CPT/HCPCS: 36415; 80061

== ENCOUNTER → 2024-04-20 12:09 | Outpatient (CLI) | payer OTHER, SELFPAY ==
[2024-04-20 13:19] LABS: Influenza A - CEPHEID Flu A NEGATIVE (NEGATIVE); Influenza B - CEPHEID Flu B NEGATIVE (NEGATIVE); Respiratory Syncytial Virus Negative (Negative)
[2024-04-20 13:20] LABS: COVID-19 CEPHEID 4-PLEX PCR Negative (Negative)
== END ==
PROVIDERS: PCP Family Medicine; Visit Provider Physician Assistant Surgical
DX: R05.1 Acute cough (principal)
CPT/HCPCS: 0241U

== ENCOUNTER → 2024-06-30 16:13 | Outpatient (CLI) | payer OTHER, SELFPAY ==
--- NOTE | 2024-06-30 16:14 | DI.RAD.S_ITS ---
PROCEDURE: XR HIP W PEL IF DONE LT 2V INDICATIONS: chronic pain constant to anterior hip x 8 mos TECHNIQUE: AP pelvis with lateral view(s) of the left hip(s). COMPARISON: None. FINDINGS: Bones: No fractures or dislocations. 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 Pelvic ring appears intact. No suspicious bony lesions. Soft tissues: The visualized bowel gas pattern is normal. No suspicious soft tissue calcifications. IMPRESSION: Degenerative change without evidence of acute bony abnormality. Dictated by: Billy Workman M.D. on 07/01/2024 at 19:29 Approved by: Billy Workman M.D. on 07/01/2024 at 19:30
[2024-06-30 17:56] LABS: Add Manual Diff / Slide Review NO; Basophils Absolute Auto 100 /uL (0-100); Basophils Percent Auto 0.8 % (0-2); Eosinophils Absolute Auto 200 /uL (0-450); Eosinophils Percent Auto 2.5 % (2-4); Hematocrit 45.4 % (41-53); Hemoglobin 15.7 g/dL (13.5-17.5); Lymphocytes Absolute Auto 2300 /uL (1100-4500); Lymphocytes Percent Auto 28.8 % (25-40); Mean Corpuscular HGB Conc 34.6 % (30-36); Mean Corpuscular Volume 83.7 fL (80-100); Monocytes Absolute Auto 700 /uL (0-900); Monocytes Percent Auto 8.2 % (3-14); Neutrophils Absolute Auto 4800 /uL (1500-7000); Neutrophils Percent Auto 59.7 % (50-75); Platelet Count 229 X10^3/uL (150-400); Red Blood Cell Count 5.42 X10^6/uL (4.5-5.9); Red Cell Distribution Width 14.1 % (11.6-14.8); White Blood Cell Count 8.1 X10^3/uL (4.5-11.0)
[2024-06-30 18:05] LABS: Alanine Aminotransferase 44 IU/L (<50); Albumin 4.5 g/dL (3.5-5.0); Albumin Globulin Ratio 1.8 (1.0-2.8); Alkaline Phosphatase 86 U/L (38-126); Aspartate Aminotransferase 35 IU/L (17-59); BUN Creatinine Ratio 11.3 (6-22); Bilirubin Total 0.7 mg/dL (0.2-1.3); Blood Urea Nitrogen 12 mg/dL (9-20); Calcium 9.6 mg/dL (8.4-10.2); Carbon Dioxide 26 mmol/L (22-32); Chloride 104 mmol/L (98-107); Estimated Glomerular Filt Rate > 60 mL/min (>60); Globulin 2.5 g/dL (1.7-4.1); Glucose 94 mg/dL (80-110); HEMOLYSIS < 15 (0-50); Potassium 4.3 mmol/L (3.4-5.1); Sodium 138 mmol/L (137-145)
[2024-06-30 18:16] LABS: Erythrocyte Sedimentation Rate 4 MM/HR (0-15)
[2024-06-30 18:37] LABS: Prostate Specific Antigen Scrn 0.903 ng/mL (0.1-4.0)
[2024-06-30 18:56] LABS: Vitamin B12 499 pg/mL (239-931)
== END ==
PROVIDERS: PCP Family Medicine; Referring Provider Physician Assistant; Visit Provider Physician Assistant
DX: M25.559 Pain in unspecified hip (principal); G89.29 Other chronic pain; R25.3 Fasciculation; Z12.5 Encounter for screening for malignant neoplasm of prostate; M16.12 Unilateral primary osteoarthritis, left hip
CPT/HCPCS: 36415; 73502; 80053; 82607; 85025; 85651; G0103

== ENCOUNTER → 2024-07-28 07:07 | Outpatient (CLI) | payer OTHER, SELFPAY ==
--- NOTE | 2024-07-28 07:11 | DI.CT.S_ITS ---
PROCEDURE: CT ABDOMEN PELVIS W CON INDICATIONS: chronic lower abdomen pain x months TECHNIQUE: After the administration of intravenous contrast, axial sections acquired from the lung bases to the pubic symphysis. Coronal and sagittal reformats were performed. For radiation dose reduction, the following was used: automated exposure control, adjustment of mA and/or kV according to patient size. COMPARISON: [facility], CT, CT CHEST ABD PELVIS W CON, 10/28/2015, 16:31. FINDINGS: Image quality: Diagnostic. Lower Chest: No significant findings. ABDOMEN: Liver: No solid mass. Gallbladder: No radiopaque gallstones or wall thickening. Biliary ducts: No biliary dilation. Pancreas: No ductal dilation. Spleen: Size is within normal limits. Adrenal Glands: No adrenal nodules. Kidneys and Ureters: No hydronephrosis. No solid mass. No complex renal cystic lesion which requires follow up. Stomach and Bowel: Normal colonic caliber, without significant wall thickening. Peritoneum: No abnormal intraperitoneal fluid. No free air. Ventral Wall: No significant ventral hernia. What appear to be several surgical clips are noted at the anterior border of the upper margin of the right inguinal canal. Abdominal Nodes: No retroperitoneal or mesenteric adenopathy by size criteria. There is, however, a central mesenteric mild edema pattern (dora mesentery sign) not present on comparison CT scanning from 2016. This extends from the left paramedian upper abdomen inferiorly to the abdomen/pelvis junction. Vessels: Aorta and inferior vena cava are normal in size. PELVIS: Pelvic Organs: Unremarkable. Bladder: No bladder wall thickening, accounting for underdistention. Pelvic Nodes: No enlarged lymph nodes. Miscellaneous: No inguinal hernias are seen. Normal appendix found right lower quadrant. Bones: No aggressive osseous abnormality. IMPRESSION: No definite acute disease is found. As discussed above the mesentery from the upper abdomen to the abdomen/pelvis junction shows a mild degree of edema/infiltration which is termed the dora mesentery sign which can be associated with multiple etiologies but in the absence of identifiable additional abnormality throughout the abdomen and pelvis is often idiopathic. Dictated by: Twin Salguero M.D. on 07/29/2024 at 11:50 Approved by: Twin Salguero M.D. on 07/29/2024 at 12:01
== END ==
PROVIDERS: PCP Family Medicine; Referring Provider Physician Assistant; Visit Provider Physician Assistant
DX: R10.9 Unspecified abdominal pain (principal); G89.29 Other chronic pain
CPT/HCPCS: 74177; Q9967

== ENCOUNTER → 2024-07-30 12:44 | Outpatient (CLI) | payer OTHER, SELFPAY ==
[2024-07-30 13:03] LABS: Appearance Urine UA CLEAR; Bilirubin Urine UA NEGATIVE (NEGATIVE); Color Urine UA YELLOW; Glucose Urine UA NEGATIVE (Negative); Ketones Urine UA TRACE (NEGATIVE); Leukocyte Esterase Urine UA NEGATIVE (NEGATIVE); Nitrite Urine UA NEGATIVE (Negative); Occult Blood Urine UA NEGATIVE (Negative); Protein Urine UA NEGATIVE (Negative); Urobilinogen Urine UA 0.2 E.U./dL (0.2)
[2024-07-30 13:12] LABS: Amorphous Sediment Urine 2+; Bacteria Urine None Seen; Culture Indicated Urine Cult Not Indicated; Mucus Urine 1+ (Negative); RBC Urine None Seen (0-5/HPF); Squamous Epithelial Cell Urine None Seen (0-5/HPF); Urine Volume 10mL (spun); WBC Urine None Seen (0-5/HPF)
[2024-07-30 13:42] LABS: C-Reactive Protein Quant < 0.5 mg/dL (<1.0)
[2024-07-30 14:23] LABS: Erythrocyte Sedimentation Rate 2 MM/HR (0-15)
== END ==
LOC: LAB 12:45
PROVIDERS: PCP Family Medicine; Referring Provider Physician Assistant; Visit Provider Physician Assistant
DX: K65.4 Sclerosing mesenteritis (principal)
CPT/HCPCS: 36415; 81001; 85651; 86140

== ENCOUNTER → 2024-08-13 07:29 | Outpatient (CLI) | payer OTHER, SELFPAY ==
[2024-08-13 09:25] LABS: Cholesterol 216 mg/dL (140-199); HDL Cholesterol 71 mg/dL (40-60); LDL Cholesterol Calculated 102 mg/dL (<100); Triglycerides 214 mg/dL (35-150)
[2024-08-13 09:55] LABS: Prostate Specific Antigen Scrn 1.06 ng/mL (0.1-4.0)
== END ==
PROVIDERS: PCP Family Medicine; Referring Provider Family Medicine; Visit Provider Family Medicine
DX: Z12.5 Encounter for screening for malignant neoplasm of prostate (principal); E78.5 Hyperlipidemia, unspecified
CPT/HCPCS: 36415; 80061; G0103

== ENCOUNTER 2024-09-13 07:54 | Day surgery (SDC) | payer OTHER, SELFPAY ==
--- NOTE | 2024-09-13 | PATH_ITS ---
[facility] Accession Number: [id number] No. of containers..02 Tissue . 01 Material submitted: . PART A: esophagus - ESOPHAGUS, DISTAL PART B: colon - TRANSVERSE POLYP . 01 Clinical history: . A) INFLAMMATION . 01 Diagnosis: Part A: ESOPHAGUS, DISTAL: Squamocolumnar junctional mucosa with mild chronic inflammation. No goblet cell metaplasia, dysplasia, or malignancy identified. . Part B: TRANSVERSE POLYP: Tubular adenoma. [facility] 09/17/20241448 Local . 01 Electronically signed: . Liban Alas MD, Pathologist NPI- [id number] . 01 Gross description: . Part A: ESOPHAGUS, DISTAL: Received in formalin are 3 fragment(s) of puente, soft tissue measuring 0.2 x 0.2 x 0.2 cm to 0.3 x 0.3 x 0.2 cm submitted entirely in 1 cassette(s) . Part B: TRANSVERSE POLYP: Received in formalin is 1 fragment(s) of puente, soft tissue measuring 0.3 x 0.2 x 0.2 cm submitted entirely in 1 cassette(s) /CASEY 09/17/2024 [facility] Local . 01 Pathologist provided ICD-10: D12.3, K20.90 . 01 CPT . 963377, 453229 Specimen Comment: A courtesy copy of this report has been sent to [phone] Performed at: [address] [id number] MD Liban Alas MD Phone: [phone]
[2024-09-13] MEDS: LACTATED RINGERS 1,000 ML 42 ML IV (08:06)
[2024-09-13 08:15] VITALS: BP 118/74; PULSE 77; RESP 16; TEMP 36.3; O2SAT 94
--- NOTE | 2024-09-13 08:39 | P.HP_ITS ---
History of Present Illness History of Present Illness Date Patient Seen: 09/13/24 Chief complaint: EGD/Colonoscopy Narrative: History of esophagitis and need for colorectal cancer screening [facility] Medical History (Updated 08/18/24 @ 21:45 by Patricia Monroy DO) Coccyalgia (~11/2022) Epididymal cyst Scrotal mass Bilateral inguinal hernia Hemorrhoid Closed minimally displaced zone I fracture of sacrum with routine healing Closed displaced fracture of surgical neck of right humerus (~03/30/16) Closed displaced fracture of pelvis (~03/20/16) Non-recurrent bilateral inguinal hernia without obstruction or gangrene Screening for diabetes mellitus Screening for HIV (human immunodeficiency virus) History of fracture of humerus Right arm pain Herpes zoster without complication Screening for prostate cancer Encounter for general adult medical examination with abnormal findings Myalgia Cough Acid reflux Heartburn symptom Hyperlipidemia Surgical History Anesthesia History of endoscopy (~04/2020) History of colonoscopy History of arthroscopic knee surgery (~05/1994) History of arthroscopic knee surgery (~04/2019) Hx of right knee surgery (~02/2017) Family History Father Hypertension Heart disease Prostate cancer Hyperlipidemia Mother Hypertension Grandfather Diabetes mellitus Grandmother Dementia Grandfather Heat stroke Grandmother Congestive heart failure Social History marital status: number of children: 3 household members: spouse occupational status: employed Smoking Status: Never smoker alcohol intake: current substance use type: does not use Meds Home Medications and Allergies Home Medications Medication Instructions Recorded Confirmed Type prednisone 10 mg tablet 20 mg (2 x 10 mg) PO DIRECTED 08/18/24 09/13/24 Rx #70 tabs rosuvastatin 10 mg tablet (Crestor) 10 mg PO DAILY #90 tabs 08/18/24 09/13/24 Rx Allergies Allergy/AdvReac Type Severity Reaction Status Date / Time spider venom [SPIDER VENOM] Allergy Intermediate Swelling Verified 08/18/24 16:07 venom-wasp Allergy Intermediate swelling Verified 08/18/24 16:07 atorvastatin AdvReac Intermediate twitching Verified 09/13/24 08:08 Exam Vital Signs (past 8 hours): - 09/13/24 08:15 Temperature 97.4 F L Pulse Rate 77 Respiratory Rate 16 Blood Pressure 118/74 Pulse Oximetry 94 Oxygen Delivery Method Room Air Oxygen Delivery Method Room Air Narrative Exam Narrative: Oropharynx free of lesion Assessment & Plan Assessment & Plan narrative: History of esophagitis need for follow-up EGD to check for healing. Risks, benefits, alternatives have been explained. Also need for colorectal cancer screening. Same risks and benefits Time-Based Coding :: [TOTAL MINUTES] spent with patient and on the chart (including review of chart, obtaining history, exam, reviewing outside data, placing orders, documenting exam and treatment plan, and counseling patient) on [DATE]. PROFEE Blade Filer Document charge(s): No
--- NOTE | 2024-09-13 08:40 | PM.OP.EC ---
Operative Date/Time/Diagnoses Date of procedure: 09/13/24 Time of procedure: 10:07 Pre-op diagnosis: See indication and findings Post-op diagnosis: same Procedure & Clinicians Study performed: EGD and colonoscopy Same procedure as scheduled: Yes Indications: Check for healing of esophagitis and need for colorectal cancer screening Surgeon: Ab Cesar Procedure Notes Procedure in detail: After informed consent was obtained the patient was placed in left lateral decubitus position. The video upper scope was placed into the oropharynx and with the patient's help swallowed into the esophagus. The esophagus stomach and duodenal were carefully examined. On withdrawal, retroflexed view the GE junction was performed. The scope was removed. The patient tolerated procedure well. The patient was then turned and the colonoscope substituted. This was placed into the rectum slowly advanced cecum. Preparation was good. On slow withdrawal mucosa was carefully examined. The scope was removed. The patient tolerated procedure well. Blood loss none Complications none Sedation mac Findings EGD 1. Severe grade C to D esophagitis at the GE junction. This was quite nodular. Ulceration was present on some of the circumference. Multiple biopsies were taken 2. Normal stomach proximal distally 3. Normal duodenal bulb and sweep Colonoscopy 1. 4 mm polyp in the transverse colon Jumbo biopsy removed completely 2. Otherwise negative colonoscopy to cecum I think the most important thing is to get Dauphin on medications and see if we can heal this. This may have been tried before but he needs a good 3-4 months of single double dose treatment before we scope him and see if we can clear this up. He will then need to have a repeat upper endoscopy Will also be in touch regarding the polyp and whether he needs 5 or 10 year follow-up.
[2024-09-13 09:37] VITALS: BP 100/70; PULSE 81; RESP 16; TEMP 36.2; O2SAT 98
[2024-09-13 09:55] VITALS: BP 100/67; PULSE 55; RESP 16; TEMP 36.2; O2SAT 98
[2024-09-13 10:00] VITALS: BP 110/70; PULSE 74; RESP 16; TEMP 36.2; O2SAT 100
--- NOTE | 2024-09-13 10:42 | P.HP_ITS ---
History of Present Illness History of Present Illness Date Patient Seen: 09/13/24 Chief complaint: EGD/Colonoscopy Narrative: History of esophagitis and need for colorectal cancer screening [facility] Medical History (Updated 08/18/24 @ 21:45 by Patricia Monroy DO) Coccyalgia (~11/2022) Epididymal cyst Scrotal mass Bilateral inguinal hernia Hemorrhoid Closed minimally displaced zone I fracture of sacrum with routine healing Closed displaced fracture of surgical neck of right humerus (~03/30/16) Closed displaced fracture of pelvis (~03/20/16) Non-recurrent bilateral inguinal hernia without obstruction or gangrene Screening for diabetes mellitus Screening for HIV (human immunodeficiency virus) History of fracture of humerus Right arm pain Herpes zoster without complication Screening for prostate cancer Encounter for general adult medical examination with abnormal findings Myalgia Cough Acid reflux Heartburn symptom Hyperlipidemia Surgical History Anesthesia History of endoscopy (~04/2020) History of colonoscopy History of arthroscopic knee surgery (~05/1994) History of arthroscopic knee surgery (~04/2019) Hx of right knee surgery (~02/2017) Family History Father Hypertension Heart disease Prostate cancer Hyperlipidemia Mother Hypertension Grandfather Diabetes mellitus Grandmother Dementia Grandfather Heat stroke Grandmother Congestive heart failure Social History marital status: number of children: 3 household members: spouse occupational status: employed Smoking Status: Never smoker alcohol intake: current substance use type: does not use Meds Home Medications and Allergies Home Medications Medication Instructions Recorded Confirmed Type prednisone 10 mg tablet 20 mg (2 x 10 mg) PO DIRECTED 08/18/24 09/13/24 Rx #70 tabs rosuvastatin 10 mg tablet (Crestor) 10 mg PO DAILY #90 tabs 08/18/24 09/13/24 Rx Allergies Allergy/AdvReac Type Severity Reaction Status Date / Time spider venom [SPIDER VENOM] Allergy Intermediate Swelling Verified 08/18/24 16:07 venom-wasp Allergy Intermediate swelling Verified 08/18/24 16:07 atorvastatin AdvReac Intermediate twitching Verified 09/13/24 08:08 Exam Vital Signs (past 8 hours): - 09/13/24 08:15 09/13/24 09:37 09/13/24 09:55 Temperature 97.4 F L 97.2 F L 97.2 F L Pulse Rate 77 81 55 L Respiratory Rate 16 16 16 Blood Pressure 118/74 100/70 100/67 Pulse Oximetry 94 98 98 Oxygen Delivery Method Room Air Room Air Room Air 09/13/24 10:00 Temperature 97.2 F L Pulse Rate 74 Respiratory Rate 16 Blood Pressure 110/70 Pulse Oximetry 100 Oxygen Delivery Method Room Air Oxygen Delivery Method Room Air Narrative Exam Narrative: Oropharynx free of lesion Assessment & Plan Assessment & Plan narrative: First-time screening colonoscopy. Risks, benefits, alternatives have been explained. Time-Based Coding :: [TOTAL MINUTES] spent with patient and on the chart (including review of chart, obtaining history, exam, reviewing outside data, placing orders, documenting exam and treatment plan, and counseling patient) on [DATE]. [employer] Document charge(s): No
--- NOTE | 2024-09-13 10:43 | PM.OP.COLON ---
Operative Date/Time/Diagnoses Date of procedure: 09/13/24 Pre-op diagnosis: See indication and findings Procedure & Clinicians Study performed: Colonoscopy Same procedure as scheduled: Yes Indications: Screening Surgeon: Ab Cesar Procedure Notes Procedure in detail: After informed consent was obtained the patient was placed in left lateral decubitus position. The video colonoscope was placed in the rectum slowly advanced cecum. Preparation was good. On slow withdrawal mucosa was carefully examined. The scope was removed. The patient tolerated procedure well. Blood loss none Complications none Sedation mac Findings 1.
== END 2024-09-13 10:28 | disposition home or self-care (01) ==
PROVIDERS: PCP Family Medicine; Referring Provider Internal Medicine Gastroenterology; Visit Provider Internal Medicine Gastroenterology
PROC: 0DJ08ZZ Inspection of Upper Intestinal Tract, Via Natural or Artificial Opening Endoscopic (ICD-10-PCS; CPT 45380; principal; 2024-09-13 09:00)
PROC: 0DJD8ZZ Inspection of Lower Intestinal Tract, Via Natural or Artificial Opening Endoscopic (ICD-10-PCS; CPT 45378; 2024-09-13 09:00)
DX: Z12.11 Encounter for screening for malignant neoplasm of colon (principal); K20.90 Esophagitis, unspecified without bleeding; D12.3 Benign neoplasm of transverse colon
CPT/HCPCS: 45380; 43239; J2704

== ENCOUNTER → 2025-02-02 11:11 | Outpatient (CLI) | payer OTHER, SELFPAY ==
--- NOTE | 2025-02-02 11:13 | DI.RAD.S_ITS ---
PROCEDURE: XR CHEST 2V INDICATIONS: Dry cough, tight chest TECHNIQUE: 2 views of the chest were acquired. COMPARISON: None. FINDINGS: Mild bilateral perihilar and lower lobe peribronchial thickening, some of which may be related expiratory result; however, bronchitis, viral infection, asthma or other process should be considered. On the lateral image there are some ill-defined rounded areas of opacification in the lower chest posteriorly which are nonspecific and may be related to rounded alveolar opacification, rounded atelectasis however rarely pulmonary nodules could have a similar appearance and follow-up suggested. Mild bibasilar subsegmental atelectasis some of which may be related expiratory result. Cardiopericardial silhouette and pulmonary vasculature within normal limits. No pneumothorax, no pleural effusion. IMPRESSION: Peribronchial thickening and patchy opacities as discussed above. Nodular opacities in the lower lobes as discussed above. Follow-up suggested. CT chest may be useful for further evaluation. Dictated by: Jin Mckeon M.D. on 02/02/2025 at 11:27 Approved by: Jin Mckeon M.D. on 02/02/2025 at 11:36
== END ==
LOC: RAD 11:13
PROVIDERS: PCP Family Medicine; Referring Provider Family Medicine; Visit Provider Family Medicine
DX: R05.3 Chronic cough (principal)
CPT/HCPCS: 71046

== ENCOUNTER → 2025-02-04 12:44 | Outpatient (CLI) | payer OTHER, SELFPAY ==
--- NOTE | 2025-02-04 12:45 | DI.CT.S_ITS ---
PROCEDURE: CT CHEST WO CON INDICATIONS: f/u on XR opacities and thickening TECHNIQUE: Noncontrast 5 mm thick sections acquired from the pulmonary apices to the posterior costophrenic angles. 1 mm lung window, 5 mm thick coronal and sagittal and 7 mm axial MIP reformats were then acquired. For radiation dose reduction, the following was used: automated exposure control, adjustment of mA and/or kV according to patient size. COMPARISON: [facility], CT, CT ABDOMEN PELVIS W CON, 07/28/2024, 8:19. [facility], CR, XR CHEST 2V, 02/02/2025, 11:08. FINDINGS: Image quality: Diagnostic. Lower Neck: No enlarged lymph nodes. Thyroid: No thyroid nodules which require sonographic follow up, per consensus guidelines. Axillae: No enlarged lymph nodes. Chest Wall: Unremarkable. Bones: No aggressive appearing bony lesions.. Spondylitic changes are noted throughout thoracic spine. Lungs and Pleura: No pneumothorax or pleural effusions. No consolidation or suspicious nodules. Central and peripheral airway is patent. Heart: Heart size is normal. No pericardial effusion. Thoracic Vessels: The aorta and pulmonary arteries demonstrate normal size. Mediastinum and Cathy: No enlarged lymph nodes. Esophagus: No wall thickening. No significant hiatal hernia. Upper Abdomen: Visualized upper abdomen solid organs and bowel loops appear normal. IMPRESSION: 1. No focal infiltrate, pleural effusion or pneumothorax. No suspicious pulmonary nodule is seen. Chest radiograph findings likely represent summation artifacts. 2. No mediastinal or hilar lymphadenopathy. No pericardial effusion. 3. Spondylitic changes throughout thoracic spine. Dictated by: Rashaun Olea M.D. on 02/04/2025 at 13:22 Approved by: Rashaun Olea M.D. on 02/04/2025 at 13:25
== END ==
PROVIDERS: PCP Family Medicine; Referring Provider Family Medicine; Visit Provider Family Medicine
DX: M47.814 Spondylosis without myelopathy or radiculopathy, thoracic region (principal); R91.1 Solitary pulmonary nodule; R05.3 Chronic cough
CPT/HCPCS: 71250

== ENCOUNTER → 2025-02-28 16:57 | Outpatient (CLI) | payer OTHER, SELFPAY | LOC: RESP 16:58 | PROVIDERS: PCP Family Medicine; Referring Provider Family Medicine; Visit Provider Family Medicine | DX: R05.3 Chronic cough (principal); R91.1 Solitary pulmonary nodule | CPT/HCPCS: 94060 ==